=== PATIENT | female | born 1945 | race Caucasian/White ===

== ENCOUNTER 2018-06-18 10:35 | Emergency (ER) | payer OTHER ==
[~2018-06-18] VITALS: Ht 152.4 cm; Wt 52.2 kg
[2018-06-18] MEDS ORDERED: SIMVASTATIN20 MG PO (10:58)
[2018-06-18] MEDS ORDERED: AMBIEN10 MG PO (10:59)
[2018-06-18] MEDS ORDERED: ZITHROMAX TRI-500 MG PO (13:30)
[2018-06-18] MEDS ORDERED: MEDROLPACK PO (13:30)
[2018-06-18] MEDS ORDERED: TUSSI PRES-B L120 M1 PO (13:30)
== END 2018-06-18 13:33 | disposition home or self-care (01) ==
LOC: ER 10:35
DX: B34.9 Viral infection, unspecified (principal)